=== PATIENT | male | born 1955 | race Caucasian/White ===

== ENCOUNTER 2016-07-04 07:58 | Day surgery (SDC) | payer BC ==
[~2016-07-04 07:58] MED LIST: Acetaminophen/HYDROcodone 325-5 MG Tab PO PRN; Lactated Ringers 1,000 ML IV SCH; Sodium Chloride 0.9% 10 ML Syringe FLUSH PRN; ceFAZolin 1 GM in Sodium Chloride 0.9% 50 ML IV ONE
[2016-07-04] MEDS ORDERED: Midazolam 1 MG/ML 5 ML SDV ONE (10:45)
[2016-07-04 12:16] VITALS: BP 150/75
--- NOTE | 2016-07-04 14:53 | OR ---
DATE OF OPERATION: PREOPERATIVE DIAGNOSIS: Left long trigger finger. POSTOPERATIVE DIAGNOSIS: Left long trigger finger. PROCEDURE PERFORMED: Left long trigger finger release. ANESTHESIA: [place] block. SURGEON: Raman Liu M.D. COSTUME MISTRESS: Carlton Ulloa RN. SPECIMENS: None. DRAINS: None. ESTIMATED BLOOD LOSS: Minimal. COMPLICATIONS: None apparent. DESCRIPTION OF PROCEDURE: After informed consent was obtained, the surgical risk was discussed. The patient's surgical site was marked, and he was brought to the operating room where a [place] block was performed. The left upper extremity was prepped and draped sterilely, a time-out was held, and antibiotics were confirmed. The limb was exsanguinated. After the prep and drape, a longitudinal incision was made over the left long finger A1 suzie dissecting sharply through the skin with careful scissor dissection into the subcutaneous tissues exposing the A1 suzie. We then longitudinally released, we copiously irrigated, and closed with 4-0 nylon, sterile dressings were applied. The patient was brought to the recovery room in stable condition having tolerated the procedure well with no apparent complications. LULU/BRISSA /[id number]
== END 2016-07-04 12:17 | disposition home or self-care (01) ==
LOC: LB.SDS 07:58
PROVIDERS: ATTEND Orthopaedic Surgery
DX: M65.332 Trigger finger, left middle finger (principal); I10 Essential (primary) hypertension; Z79.899 Other long term (current) drug therapy
CPT/HCPCS: 26055; J2250; J7120; J0690; J7050

== ENCOUNTER 2023-01-06 09:50 | Emergency (ER) | payer MEDICARE ==
[2023-01-06 10:18] VITALS: BP 142/92; PULSE 63
== END 2023-01-06 10:31 | disposition home or self-care (01) ==
LOC: LB.ED 09:50
DX: R42 Dizziness and giddiness (principal); H66.93 Otitis media, unspecified, bilateral; H61.21 Impacted cerumen, right ear; I10 Essential (primary) hypertension; Z91.013 Allergy to seafood; Z79.899 Other long term (current) drug therapy
CPT/HCPCS: 99283; A9270-GY